=== PATIENT | female | born 1945 | race Caucasian/White ===

== ENCOUNTER → 2016-06-09 | Outpatient (CLI) | payer OTHER ==
[~2016-06-09] MED LIST: ALBUAER19 INH; AMLO-110 PO; ANT25 PO; CARV6.252 PO; CMD5 PO; CRG3125 PO; GADOXETATE DISODIUM IV PRN; LISI-792 PO; LNX125 PO; LRS20 PO; MECL25TA2 PO; OMEP20CA9 PO; TRAZ1TAB9 PO; VNTHFA/IN INH; WARF5TAB7 PO
--- NOTE | 2016-06-09 09:40 | DIAGNOSTIC IMAGING REPORT ---
MRI OF THE ABDOMEN COMBO CLINICAL HISTORY: Liver lesion. COMPARISON STUDY: 12/17/2015. TECHNIQUE: MRI of the abdomen is performed transverse T1 and T2-weighted sequences in the axial and coronal planes. Contrast enhanced sequences were acquired following the IV administration of U best. FINDINGS: Lower chest: No pleural effusion is identified. The heart is normal in size. Liver: The liver is normal in size, contour, and signal intensity. No intrahepatic biliary ductal dilatation is seen. The hepatic veins and portal veins are patent. 4 mm cyst anterior left hepatic lobe unchanged compared to prior studies Gallbladder: Unremarkable. Spleen: Normal in size and signal intensity. Pancreas: Unremarkable. Adrenal glands: Unremarkable. Kidneys: The kidneys are normal in size and without hydronephrosis. The kidneys enhance and excrete symmetrically. Bowel: Visualized portions of the small bowel and colon show no evidence of obstruction. Peritoneum: There is no abdominal ascites. Lymphadenopathy: None. Skeletal structures: Visualized skeletal structures times are normal marrow signal intensity. IMPRESSION: Normal MRI of the abdomen. Very small hepatic cyst. No significant abnormalities appreciated. The liver specifically is unremarkable Electronically signed by: Volodymyr Taylor M.D. 06/09/2016 9:39 AM Dictated Date/Time: 06/09/2016 9:33 AM
== END | disposition home or self-care (01) ==
LOC: C.MRI 07:21
PROVIDERS: ATTEND Internal Medicine Hematology & Oncology
DX: C69.92 Malignant neoplasm of unspecified site of left eye (principal); K76.9 Liver disease, unspecified

== ENCOUNTER 2016-06-19 17:50 | Inpatient (IN) | payer OTHER ==
[~2016-06-19] VITALS: Ht 165.1 cm; Wt 114.8 kg
[~2016-06-19 17:50] MED LIST changes: -AMLO-110 PO; -ANT25 PO; -CARV6.252 PO; -CRG3125 PO; -GADOXETATE DISODIUM IV PRN; -VNTHFA/IN INH
[2016-06-19] MEDS ORDERED: LABETALOL HCL IV 5 MG/ML 20ML IV STA ×2 (18:03→18:47)
--- NOTE | 2016-06-19 18:14 | EMERGENCY ROOM VISIT NOTE ---
History Report prepared by Abdulaziz: Hollie Gonzalez Under the Supervision of: Dr. Ambrose Nunez M.D. First contact with patient: 17:53 Chief Complaint: CHEST PAIN Stated Complaint: CHEST PAIN- CARDIAC HX, NOT FEELING RIGHT Nursing Triage Summary: Triage note: pt reports "i had chest pain off and on since 1719." pt reports "i had a small attack maybe a year ago." History of Present Illness The patient is a 70 year old female who presents to the Emergency Room with complaints of intermittent chest pain for the past 40 minutes. She describes her pain as sharp and states that it is located under her left breast. She is not currently having any chest pain at this time and states that she "just feels off." She feels lightheaded like she is going to pass out. Standing exacerbates this, while resting helps to alleviate it. She denies any LOC. The patient also reports feeling slightly short of breath when experiencing her chest pain. She denies nausea, vomiting, headache, melena, hematochezia, and abdominal pain. The patient has a history of an OH, and does not have any cardiac stents. 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 She has a history of A-fib and is on Coumadin. She states that her INR has been WNL. Source of History: patient Onset: 40 minutes TUBE FITTER Position: chest (left) Quality: sharp Timing: intermittent Modifying Factors (Worsening): exertion, other (standing) Modifying Factors (Relieving): rest Associated Symptoms: + SOB, No abdominal pain, No headache, No hematochezia , No melena, No nausea, No vomiting Note: Pt feels lightheaded. Review of Systems See HPI for pertinent positives & negatives. A total of 10 systems reviewed and were otherwise negative. Past Medical & Surgical Medical Problems: (1) ASTHMA, UNSPECIFIED (2) Chest pain (3) DIVERTICULOSIS COLON (W/O MENT OF HEMORRHAGE) (4) HYPERTENSION NOS (5) OTH PULMON EMBOLISM/INFARCT (6) PURE HYPERCHOLESTEROLEM Family History FHx: cancer Social History Smoking Status: Never Smoker Alcohol Use: none Drug Use: none Marital Status: Housing Status: lives with significant other Current/Historical Medications Scheduled Amlodipine (Norvasc), 2.5 MG PO DAILY Carvedilol (Coreg), 6.25 MG PO BIDM Digoxin (Digoxin), 0.125 MG PO DAILY Lisinopril (Zestril), 20 MG PO DAILY Omeprazole (Prilosec), 20 MG PO DAILY Trazodone Hcl (Desyrel), 100 MG PO HS Warfarin Sod (Jantoven), 2.5 MG PO 5XWK Warfarin Sod (Coumadin), 5 MG PO TW Scheduled PRN Albuterol Hfa (Ventolin Hfa), 2 PUFFS INH Q4H PRN for ALLERGIC REACTION Baclofen (Baclofen), 20 MG PO TID PRN for Muscle Spasms Meclizine HCl (Meclizine HCl), 25 MG PO TID PRN for Dizziness or Vertigo Allergies Coded Allergies: Aspirin (Verified Allergy, Unknown, ., 06/19/16) Penicillins (Verified Adverse Reaction, Mild, N/V, 06/19/16) Salicylates (Verified Adverse Reaction, Mild, NAUSEA, VOMITING, 06/19/16) Statins (Verified Adverse Reaction, Mild, MUSCLE PAIN, 06/19/16) Fluorescein (Verified Adverse Reaction, Unknown, DRUGS, 06/19/16) Physical Exam Vital Signs Date Time Temp Pulse Resp B/P Pulse Ox O2 Delivery O2 Flow Rate FiO2 06/19/16 20:00 72 18 144/86 Room Air 06/19/16 18:51 84 16 173/95 98 Room Air 06/19/16 18:32 71 18 186/115 96 Room Air 06/19/16 18:22 85 16 176/142 96 Room Air 06/19/16 18:16 91 06/19/16 17:54 36.7 99 20 211/174 97 Room Air Physical Exam GENERAL: Patient is anxious appearing and in minimal distress. HEENT: No acute trauma, normocephalic atraumatic, mucous membranes moist, no nasal congestion, no scleral icterus. NECK: No stridor, no adenopathy, no meningismus, trachea is midline. LUNGS: No dyspnea. Clear to auscultation and equal bilaterally. No wheeze, no rhonchi. HEART: Tachycardic rate and irregular rhythm. No murmurs, rubs, gallops appreciated. ABDOMEN: Soft, nontender, bowel sounds positive, no masses appreciated, no peritonitis. BACK: No midline tenderness, no CVA tenderness EXTREMITIES: Normal motion all extremities, no cyanosis, no edema. NEUROLOGIC: Alert and oriented, no acute motor or sensory deficits, no focal weakness, cranial nerves grossly intact. SKIN: No rash, no jaundice, no diaphoresis. Medical Decision & Procedures ER Provider Diagnostic Interpretation: Radiology results and stated below per my review and radiologist interpretation: CHEST ONE VIEW PORTABLE CLINICAL HISTORY: Chest pain. Cardiac history. COMPARISON STUDY: Chest radiograph and chest CT February 06, 2012. FINDINGS: Lung volumes are normal. There is no pneumothorax or pleural effusion. There is no evidence of pulmonary edema. Moderate enlargement of the cardiac silhouette is increased since prior exam. In part, this could be due to a pericardial effusion. There is no evidence of pulmonary edema. IMPRESSION: 1. Moderate enlargement of the cardiac silhouette, increased since prior exam. In part, this could be due to a pericardial effusion. 2. No evidence of pulmonary edema. Electronically signed by: Sunil Piper M.D. 06/19/2016 6:23 PM Dictated Date/Time: 06/19/2016 6:21 PM Laboratory Results 06/19/16 18:05 Red Blood Count 4.84, Mean Corpuscular Volume 85.1, Mean Corpuscular Hemoglobin 28.9, Mean Corpuscular Hemoglobin Concent 34.0, Mean Platelet Volume 10.7, Neutrophils (%) (Auto) 50.3, Lymphocytes (%) (Auto) 41.7, Monocytes (%) (Auto) 6.6, Eosinophils (%) (Auto) 1.0, Basophils (%) (Auto) 0.3, Neutrophils # (Auto) 3.40, Lymphocytes # (Auto) 2.83, Monocytes # (Auto) 0.45, Eosinophils # (Auto) 0.07, Basophils # (Auto) 0.02 06/19/16 18:05 Test 06/19/16 18:05 White Blood Count 6.78 K/uL (4.8-10.8) Red Blood Count 4.84 M/uL (4.2-5.4) Hemoglobin 14.0 g/dL (12.0-16.0) Hematocrit 41.2 % (37-47) Mean Corpuscular Volume 85.1 fL (80-100) Mean Corpuscular Hemoglobin 28.9 pg (25-34) Mean Corpuscular Hemoglobin Concent 34.0 g/dl (32-36) Platelet Count 176 K/uL (130-400) Mean Platelet Volume 10.7 fL (7.4-10.4) Neutrophils (%) (Auto) 50.3 % Lymphocytes (%) (Auto) 41.7 % Monocytes (%) (Auto) 6.6 % Eosinophils (%) (Auto) 1.0 % Basophils (%) (Auto) 0.3 % Neutrophils # (Auto) 3.40 K/uL (1.4-6.5) Lymphocytes # (Auto) 2.83 K/uL (1.2-3.4) Monocytes # (Auto) 0.45 K/uL (0.11-0.59) Eosinophils # (Auto) 0.07 K/uL (0-0.5) Basophils # (Auto) 0.02 K/uL (0-0.2) RDW Standard Deviation 40.6 fL (36.4-46.3) RDW Coefficient of Variation 13.1 % (11.5-14.5) Immature Granulocyte % (Auto) 0.1 % Immature Granulocyte # (Auto) 0.01 K/uL (0.00-0.02) Prothrombin Time 32.5 SECONDS (9.0-12.0) Prothromb Time International Ratio 2.9 (0.9-1.1) Activated Partial Thromboplast Time 37.8 SECONDS (21.0-31.0) Partial Thromboplastin Ratio 1.5 Anion Gap 8.0 mmol/L (3-11) Est Creatinine Clear Calc Drug Dose 71.3 ml/min Estimated GFR () 72.2 Estimated GFR (Non- 62.3 BUN/Creatinine Ratio 11.8 (10-20) Calcium Level 9.3 mg/dl (8.5-10.1) Magnesium Level 2.0 mg/dl (1.8-2.4) Total Creatine Kinase 77 U/L (26-192) Creatine Kinase MB 1.0 ng/ml (0.5-3.6) Creatine Kinase MB Ratio 1.3 (0-3.0) Troponin I < 0.015 ng/ml (0-0.045) Digoxin Level 0.9 ng/ml (0.8-2.0) Laboratory results as reviewed by me. Medications Administered Medications (Trade) Dose Ordered Sig/Paddy Route Start Time Stop Time Status Last Admin Dose Admin Labetalol HCl (Normodyne IV) 10 mg NOW STAT IV 06/19/16 18:03 06/19/16 18:04 DC 06/19/16 18:26 10 MG Labetalol HCl (Normodyne IV) 10 mg NOW STAT IV 06/19/16 18:47 06/19/16 18:48 DC 06/19/16 19:12 10 MG ECG Indication: chest pain Rate (beats per minute): 96 Rhythm: atrial fibrillation Findings: PVC, T-wave inversion (in lead 1) Comparison ECG Date: 01/15/2015 Change: T-wave inversions are new. ED Course 175: The patient was evaluated in room A3. A complete history and physical exam was performed. 1802: Labetalol HCl 10 mg IV 1846: Labetalol HCl 10 mg IV 1907: I reassessed the patient at this time. She is feeling better with her blood pressure improving. I discussed the results and treatment plan with the patient. I answered all pertaining questions that she had. She expressed understanding and verbalized agreement. 1920: I spoke with Dr. Huber. We discussed the patient's results and treatment plan. [facility]. Medical Decision Differential: Cardiac Ischemia (STEMI, NSTEMI, Unstable Angina, etc), Aortic Dissection, Arrhythmia, Pulmonary Embolism, Pneumonia, Pneumothorax, MSK, Infectious, Pericarditis/Myocarditis, Esophageal Rupture, Gastrointestinal, amongst other pathologies entertained. 70 yr old female arrives with complaint of left chest pain. Resolved prior to arrival. Now significantly hypertensive with vague lightheadedness. No neuro deficits and patient feeling vastly improved with BP lowered with IV meds. Initial trop negative and EKG unremarkable. CXR unremarkable. Other labs look OK currently. Will need to come in for cardiac rule out given her history she is too high risk to discharge from ED. Consults Time Called: 1901 Consulting Physician: Dr. Huber Returned Call: [address] Huber. We discussed the patient's results and treatment plan. The [facility]. Impression Primary Impression: Left sided chest pain Additional Impression: Hypertensive urgency Scribe Attestation The scribe's documentation has been prepared under my direction and personally reviewed by me in its entirety. I confirm that the note above accurately reflects all work, treatment, procedures, and medical decision making performed by me. Departure Information Dispostion Being Evaluated By Hospitalist Referrals Gopal Rodriguez M.D.(HUGH) (PCP) Patient Instructions My [facility] Problem Qualifiers
[2016-06-19 18:25] LABS: BASO % 0.3 %; BASO ABS # 0.02 K/uL (0-0.2); COMPLETE YES; HEMATOCRIT 41.2 % (37-47); IG% 0.1 %; LYMPH % 41.7 %; LYMPH ABS # 2.83 K/uL (1.2-3.4); MEAN CELL VOLUME 85.1 fL (80-100); MEAN CORPUSCULAR HEMOGLOBIN 28.9 pg (25-34); MEAN PLATELET VOLUME 10.7 fL (7.4-10.4); MONO % 6.6 %; NEUT % 50.3 %; PLATELET COUNT 176 K/uL (130-400); RED BLOOD COUNT 4.84 M/uL (4.2-5.4); WHITE BLOOD COUNT 6.78 K/uL (4.8-10.8)
--- NOTE | 2016-06-19 18:25 | DIAGNOSTIC IMAGING REPORT ---
CHEST ONE VIEW PORTABLE CLINICAL HISTORY: Chest pain. Cardiac history. COMPARISON STUDY: Chest radiograph and chest CT February 06, 2012. FINDINGS: Lung volumes are normal. There is no pneumothorax or pleural effusion. There is no evidence of pulmonary edema. Moderate enlargement of the cardiac silhouette is increased since prior exam. In part, this could be due to a pericardial effusion. There is no evidence of pulmonary edema. IMPRESSION: 1. Moderate enlargement of the cardiac silhouette, increased since prior exam. In part, this could be due to a pericardial effusion. 2. No evidence of pulmonary edema. Electronically signed by: Sunil Piper M.D. 06/19/2016 6:23 PM Dictated Date/Time: 06/19/2016 6:21 PM
[2016-06-19 18:33] LABS: INR 2.9 (0.9-1.1); PARTIAL THROMBOPLASTIN RATIO 1.5; PROTHROMBIN TIME (PATIENT) 32.5 SECONDS (9.0-12.0)
[2016-06-19 18:44] LABS: BLOOD UREA NITROGEN 11 mg/dl (7-18); BUN/CREATININE RATIO 11.8 (10-20); CALCIUM 9.3 mg/dl (8.5-10.1); CARBON DIOXIDE 29 mmol/L (21-32); CHLORIDE 104 mmol/L (98-107); CREATININE 0.93 mg/dl (0.60-1.20); GLUCOSE 87 mg/dl (70-99); POTASSIUM 3.8 mmol/L (3.5-5.1); SODIUM 141 mmol/L (136-145)
[2016-06-19] MEDS ORDERED: ANT25 PO (18:45)
[2016-06-19] MEDS ORDERED: VNTHFA/IN INH (18:45)
[2016-06-19] MEDS ORDERED: AMLO-110 PO (18:45)
[2016-06-19] MEDS ORDERED: CARV6.252 PO (18:45)
[2016-06-19 18:50] LABS: CKMB/CK RATIO 1.3 (0-3.0)
--- NOTE | 2016-06-19 19:51 | History and Physical ---
History & Physical Date & Time of Service: Jun 19, 2016 at 19:47 . Chief Complaint: chest pressure . Primary Care Physician: Gopal Rodriguez M.D.(AMANDA) . History of Present Illness Source: patient, family, clinic records, hospital records 70 YO female followed by Dr. Rodriguez for Family Medicine and Dr. Calderon for Cardiology. History of ischemic heart disease- apical wall motion abnormality per echo, but no clinical history of LA. History of pericardial effusion- incidentally noted on MRI, small by echo in 2016. Other medical problems include chronic AF managed with rate control and warfarin , hypertension, ocular melanoma. Developed chest pain this evening. She had been shopping with her and they were returning home in their vehicle when she developed left inframammary chest pressure. Chest pain was not pleuritic in nature and did not radiate. It was associated with SOB, but no diaphoresis, nausea, vomiting. Came to ED for evaluation. BP upon presentation 211/174. Received IV labetalol with improvement of BP and resolution of chest pain. Pain-free at time of my assessment. . 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, treated with radiation implant [facility] Status: Chronic (10) History of pulmonary embolism Status: Chronic (11) Hypertension Status: Chronic (12) Migraine headache Status: Chronic (13) Osteoarthritis Status: Chronic (14) Pericardial effusion Permanent Comment: small pericardial effusion per echo 2016 Status: Chronic (15) Restless leg syndrome Status: Chronic (16) Sleep apnea, obstructive Permanent Comment: intolerant of CPAP Status: Chronic (17) Statin intolerance Status: Chronic Surgical Problems: (1) Status post appendectomy Status: Chronic (2) Status post cholecystectomy Status: Chronic (3) Status post hysterectomy Status: Chronic . Family History FATHER Cancer MOTHER Uterine cancer BROTHER Lung cancer SON Hypertension Stroke Coronary artery disease SON Coronary artery disease Social History Smoking Status: Never Smoker Alcohol Use: none Drug Use: none Marital Status: Housing status: lives with family Immunizations History of Influenza Vaccine: Yes History of Tetanus Vaccine?: No History of Pneumococcal: Yes Pneumococcal Date: Feb 08, 2012 History of Hepatitis B Vaccine: No Multi-Drug Resistant Organisms History of MDRO: No Allergies Coded Allergies: Aspirin (Verified Allergy, Unknown, ., 06/19/16) Penicillins (Verified Adverse Reaction, Mild, N/V, 06/19/16) Salicylates (Verified Adverse Reaction, Mild, NAUSEA, VOMITING, 06/19/16) Statins (Verified Adverse Reaction, Mild, MUSCLE PAIN, 06/19/16) Fluorescein (Verified Adverse Reaction, Unknown, DRUGS, 06/19/16) Home Medications Scheduled Amlodipine (Norvasc), 2.5 MG PO DAILY Carvedilol (Coreg), 6.25 MG PO BIDM Digoxin (Digoxin), 0.125 MG PO DAILY Lisinopril (Zestril), 20 MG PO DAILY Omeprazole (Prilosec), 20 MG PO DAILY Trazodone Hcl (Desyrel), 100 MG PO HS Warfarin Sod (Jantoven), 2.5 MG PO 5XWK Warfarin Sod (Coumadin), 5 MG PO TW Scheduled PRN Albuterol Hfa (Ventolin Hfa), 2 PUFFS INH Q4H PRN for ALLERGIC REACTION Baclofen (Baclofen), 20 MG PO TID PRN for Muscle Spasms Meclizine HCl (Meclizine HCl), 25 MG PO TID PRN for Dizziness or Vertigo Review of Systems Constitutional: + weight loss (intentional), No fever Eyes: + worsening of vision (vision loss left eye due to melanoma + radiation treatment) ENT: No nasal symptoms, No sore throat Respiratory: No cough, No wheezing Cardiovascular: + chest pain (as noted in HPI), + palpitations (occasional), No edema Abdomen: + GI bleeding (intermittent rectal bleeding, evaluated by colonoscopy , attributed to hemorrhoids), No diarrhea, No nausea, No pain, No vomiting Musculoskeletal: + joint pain Genitourinary - Female: No dysuria, No hematuria Endocrine: No excessive thirst, No excessive urination Hematologic / Lymphatic: + abnormal bleeding/bruising Integumentary: No new/changing skin lesions, No rash Physical Exam Vital Signs Date Time Temp Pulse Resp B/P Pulse Ox O2 Delivery O2 Flow Rate FiO2 06/19/16 18:51 84 16 173/95 98 Room Air 06/19/16 18:32 71 18 186/115 96 Room Air 06/19/16 18:22 85 16 176/142 96 Room Air 06/19/16 18:16 91 06/19/16 17:54 36.7 99 20 211/174 97 Room Air General Appearance: WD/WN, no apparent distress Head: normocephalic, atraumatic Eyes: normal inspection, PERRL, EOMI, sclerae normal ENT: normal ENT inspection, pharynx normal Neck: supple, no adenopathy, thyroid normal, trachea midline Respiratory/Chest: lungs clear, no respiratory distress, no accessory muscle use Cardiovascular: no JVD, no murmur, normal peripheral pulses, + irregularly irregular, + pertinent finding (trace pretibial edema) Abdomen/GI: normal bowel sounds, non tender, soft, no organomegaly, no pulsatile mass Extremities/Musculoskelatal: normal inspection, no calf tenderness, no pedal edema Neurologic/Psych: 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 nml as tested (PERRL, EOMI), no motor/sensory deficits (motor 5/5 bilat), alert, oriented x 3 Skin: normal color, warm/dry, no rash Lymphatic: no adenopathy Diagnostics Laboratory Results Results Past 24 Hours Test 06/19/16 18:05 Range/Units White Blood Count 6.78 4.8-10.8 K/uL Red Blood Count 4.84 4.2-5.4 M/uL Hemoglobin 14.0 12.0-16.0 g/dL Hematocrit 41.2 37-47 % Mean Corpuscular Volume 85.1 80-100 fL Mean Corpuscular Hemoglobin 28.9 25-34 pg Mean Corpuscular Hemoglobin Concent 34.0 32-36 g/dl Platelet Count 176 130-400 K/uL Mean Platelet Volume 10.7 7.4-10.4 fL Neutrophils (%) (Auto) 50.3 % Lymphocytes (%) (Auto) 41.7 % Monocytes (%) (Auto) 6.6 % Eosinophils (%) (Auto) 1.0 % Basophils (%) (Auto) 0.3 % Neutrophils # (Auto) 3.40 1.4-6.5 K/uL Lymphocytes # (Auto) 2.83 1.2-3.4 K/uL Monocytes # (Auto) 0.45 0.11-0.59 K/uL Eosinophils # (Auto) 0.07 0-0.5 K/uL Basophils # (Auto) 0.02 0-0.2 K/uL RDW Standard Deviation 40.6 36.4-46.3 fL RDW Coefficient of Variation 13.1 11.5-14.5 % Immature Granulocyte % (Auto) 0.1 % Immature Granulocyte # (Auto) 0.01 0.00-0.02 K/uL Prothrombin Time 32.5 9.0-12.0 SECONDS Prothromb Time International Ratio 2.9 0.9-1.1 Activated Partial Thromboplast Time 37.8 21.0-31.0 SECONDS Partial Thromboplastin Ratio 1.5 Sodium Level 141 136-145 mmol/L Potassium Level 3.8 3.5-5.1 mmol/L Chloride Level 104 98-107 mmol/L Carbon Dioxide Level 29 21-32 mmol/L Anion Gap 8.0 3-11 mmol/L Blood Urea Nitrogen 11 7-18 mg/dl Creatinine 0.93 0.60-1.20 mg/dl Est Creatinine Clear Calc Drug Dose 71.3 ml/min Estimated GFR () 72.2 Estimated GFR (Non- 62.3 BUN/Creatinine Ratio 11.8 10-20 Random Glucose 87 70-99 mg/dl Calcium Level 9.3 8.5-10.1 mg/dl Magnesium Level 2.0 1.8-2.4 mg/dl Total Creatine Kinase 77 26-192 U/L Creatine Kinase MB 1.0 0.5-3.6 ng/ml Creatine Kinase MB Ratio 1.3 0-3.0 Troponin I < 0.015 0-0.045 ng/ml Digoxin Level 0.9 0.8-2.0 ng/ml Diagnostic Radiology CHEST ONE VIEW PORTABLE CLINICAL HISTORY: Chest pain. Cardiac history. COMPARISON STUDY: Chest radiograph and chest CT February 06, 2012. FINDINGS: Lung volumes are normal. There is no pneumothorax or pleural effusion. There is no evidence of pulmonary edema. Moderate enlargement of the cardiac silhouette is increased since prior exam. In part, this could be due to a pericardial effusion. There is no evidence of pulmonary edema. IMPRESSION: 1. Moderate enlargement of the cardiac silhouette, increased since prior exam. In part, this could be due to a pericardial effusion. 2. No evidence of pulmonary edema. Electronically signed by: Sunil Piper M.D. 06/19/2016 6:23 PM . EKG EKG performed at 17:56 reviewed and demonstrated AF at 96 / minute, occasional PVC vs aberrant PAC, poor R-wave progression, biphasic T-waves I, aVL.. . Impression Assessment and Plan CHEST PAIN / CAD History of wall motion abnormality on echo, but no clinical history of LA. CP this evening at rest. History of pulmonary embolism, but PE very unlikely with INR of 2.9 on warfarin. Doubt aortic dissection - equal pulses, pain-free after treatment of hypertension, normal mediastinal shadow (although dissection must be considered if pain recurs and there is not another etiology). EKG as noted. Serum troponin < 0.015. Check serial cardiac markers and EKG. Check lipid profile. Check echo to assess for new wall motion abnormalities. Continue aspirin, carvedilol, amlodipine, lisinopril. Intolerant of statins- consider another trial if acute coronary syndrome suspected. Consult Cardiology. PERICARDIAL EFFUSION History of small pericardial effusion per echo 2016. Today's chest x-ray shows enlarged cardiac silhouette consistent with pericardial effusion. Hemodynamically stable, tamponade unlikely. Etiology of pericardial effusion uncertain- consider autoimmune disease, malignancy (history of melanoma). Check f/u echo. Consult Cardiology. NPO in a.m. & hold warfarin in case pericardiocentesis warranted. CHRONIC ATRIAL FIBRILLATION Continue rate control with carvedilol and digoxin. Continue anticoagulation with warfarin (but hold for possible pericardiocentesis ). HYPERTENSION / HYPERTENSIVE URGENCY History of hypertension. BP upon presentation to ED was 211/74. Received IV labetalol with improvement. Continue carvedilol, amlodipine, lisinopril. Increase amlodipine to 5 mg daily. Consider increasing carvedilol if pulse rate OK. GERD Continue PPI. DYSLIPIDEMIA Check lipid profile. Intolerant of statins- consider another trial if acute coronary syndrome suspected. HISTORY OF OCULAR MELANOMA Follow-up with Hematology / Oncology and Ophthalmology. VTE PROPHYLAXIS High risk- history of DVT and PE. Currently anticoagulated on warfarin with INR of 2.9. Warfarin will be held as noted above. Ambulate. Add SCD's if INR falls below 2. RESUSCITATION STATUS Full resuscitation status implied by conversation in ED, not addressed in detail because of patient's anxiety and labile hypertension. Should be readdressed when appropriate. DISPOSITION Admit to Telemetry Unit. Expected discharge to home. Family Medicine follow-up with Dr. Rodriguez. Cardiology follow-up with Dr. Calderon. . VTE Prophylaxis Given or contraindicated: Warfarin (Coumadin) Additional Copies To Ken Calderon D.O.; Gopal Rodriguez M.D.(AMANDA)
[2016-06-19] MEDS ORDERED: ACETAMINOPHEN 325 MG TAB PO PRN (20:00)
[2016-06-19] MEDS ORDERED: LABETALOL HCL IV 5 MG/ML 20ML IV PRN (21:15)
[2016-06-19 21:52] VITALS: BP 184/128; PULSE 68; TEMP 36.5; O2SAT 97
[2016-06-19] MEDS ORDERED: AMLODIPINE BESYLATE 5 MG TAB PO ONE ×2 (22:00→22:45)
[2016-06-19 22:04] VITALS: BP 184/128; PULSE 68; TEMP 36.5; O2SAT 97; Ht 165.1 cm; Wt 114.8 kg
[2016-06-19 22:30] VITALS: BP 144/79; PULSE 78
[2016-06-19] MEDS ORDERED: TRAZODONE HCL 100 MG TAB PO ONE (23:45)
[2016-06-19 23:52] VITALS: BP 151/88; PULSE 66; TEMP 37; O2SAT 97
[2016-06-20] VITALS (7 sets, daily range): BP systolic 126–159; BP diastolic 70–87; PULSE 59–77; TEMP 36.2–36.6; O2SAT 95–97
[2016-06-20 06:56] LABS: HEMATOCRIT 37.1 % (37-47); MEAN CELL VOLUME 85.5 fL (80-100); MEAN CORPUSCULAR HEMOGLOBIN 28.3 pg (25-34); MEAN CORPUSCULAR HGB CONC 33.2 g/dl (32-36); MEAN PLATELET VOLUME 10.5 fL (7.4-10.4); PLATELET COUNT 143 K/uL (130-400); RED BLOOD COUNT 4.34 M/uL (4.2-5.4); WHITE BLOOD COUNT 4.66 K/uL (4.8-10.8)
[2016-06-20] MEDS ORDERED: PERFLUTREN LIPID MICROSPHERE (DEFINITY) IV ONE (07:05)
[2016-06-20 07:19] LABS: INR 3.1 (0.9-1.1)
[2016-06-20 07:28] LABS: BUN/CREATININE RATIO 12.6 (10-20); CALCIUM 8.5 mg/dl (8.5-10.1); CREATININE 0.86 mg/dl (0.60-1.20); POTASSIUM 3.4 mmol/L (3.5-5.1)
--- NOTE | 2016-06-20 07:39 | Clinical Documentation Query ---
Dr. [facility] : CLINICAL DOCUMENTATION QUERY Patient is a 70 year old female presenting with intermittent chest pain associated with shortness of breath. BP 211/174 on arrival to ED. She was treated with IV Labetalol and is being maintained on Carvedilol, Amlodipine, and Lisinopril. Documentation has included hypertensive urgency. As appropriate, consider a more broad descriptor as suggested below as this imparts a higher level of severity of illness, risk of mortality, and directly impacts DRG assignment. Thank you. In your clinical opinion is this patient being managed for: ( ) Hypertensive crisis ( ) Other explanation of clinical findings (Please Explain) ( ) Unable to determine (Please Define) ( ) Need to Discuss ( ) Not Agree XXX NOT MY PATIENT The medical record reflects the following clinical findings, treatment, and risk factors. Clinical Indicators: As above Treatment:She was treated with IV Labetalol and is being maintained on Carvedilol, Amlodipine, and Lisinopril, monitored on telemetry, echocardiogram, serial EKG's, cardiology consultation. Risk Factors: Hypertension, chest pain Please clarify and document your clinical opinion in the progress notes and discharge summary. Terms such as "probable", "suspected", "likely", "questionable", "possible", or "still to be ruled out" are acceptable. IF IN AGREEMENT, YOU MUST DOCUMENT ABOVE DIAGNOSTIC STATEMENT IN DAILY PROGRESS NOTES AND DISCHARGE SUMMARY. This document is not part of the patient's record. Thank You, Kiran Gilbert, RN [phone]
[2016-06-20] MEDS ORDERED: CARVEDILOL 6.25 MG TAB PO SCH (08:00)
--- NOTE | 2016-06-20 08:41 | ECHOCARDIOGRAM REPORT ---
*NOTICE TO RECEIVING DEMOCRAT AGENCY This information is strictly Confidential and protected under [place] law. [place] law prohibits you from making any further disclosure of this information unless further disclosure is expressly permitted by the written consent of the person to whom it pertains or is authorized by law. A general authorization for the release of medical or other information is not sufficient for this purpose. Hospital accepts no responsibility if the information is made available to any other person, INCLUDING THE PATIENT. Interpretation Summary * Name: ROMAIN GONZALEZ Study Date: 06/20/2016 09:29 AM BP: 159/87 mmHg * Patient Location: [facility]\S\N280\S\1 HR: 64 * : 1945 (M/d/yyyy) Gender: Female Height: 65 in * Age: 70 yrs Ethnicity: [place] Weight: 253 lb * Ordering Physician: Stanislav Huber * Referring Physician: Self, Referred * Performed By: Priya Early RDCS * * Reason For Study: CHEST PAIN * BSA: 2.2 m2 * -- Conclusions -- * The left ventricle is normal in size. * There is mild concentric left ventricular hypertrophy. * There is borderline global hypokinesis of the left ventricle. * There is borderline apical wall hypokinesis. * Ejection Fraction = 50-55%. * Aortic valve sclerosis mild, without significant aortic valvular stenosis. * Trace aortic regurgitation. * A small loculated lateral pericardial effusion of no hemodynamic significance is present. Procedure Details * A complete two-dimensional transthoracic echocardiogram was performed (2D, M-mode, Doppler and color flow Doppler). * A contrast injection of Definity was performed to improve assessment of LV function. * Contrast was injected into an intravenous site in the right arm. * One vial of Definity ultrasound contrast was diluted in normal saline to a total volume of 10 ml. A total of '2' ml of solution was administered during imaging. * Lot # [id number] of Definity utilized for procedure. * Expiration date JUN 24. * The attending nurse who injected the contrast agent was GUERO POPE RN. Left Ventricle * The left ventricle is normal in size. * There is mild concentric left ventricular hypertrophy. * Ejection Fraction = 50-55%. * There is borderline global hypokinesis of the left ventricle. * There is borderline apical wall hypokinesis. Right Ventricle * The right ventricle is normal in size and function. Atria * The left atrial size is normal. * The right atrium is borderline dilated. * No ASD detected; PFO is not assessed. Mitral Valve * The mitral valve leaflets are mildly thickened. * There is no mitral valve stenosis. * There is trace mitral regurgitation. Tricuspid Valve * The tricuspid valve is normal. * There is no tricuspid stenosis. * There is trace tricuspid regurgitation. * Doppler findings do not suggest pulmonary hypertension. Aortic Valve * The aortic valve is trileaflet. * Aortic valve sclerosis mild, without significant aortic valvular stenosis. * Trace aortic regurgitation. Pulmonic Valve * The pulmonic valve is not well visualized. Great Vessels * The aortic root is normal size. Pericardium/Pleural * A small loculated lateral pericardial effusion of no hemodynamic significance is present. Great Vessels * Normal inferior vena cava diameter and respiratory variation suggests normal central venous pressure. Left Ventricular Diastolic Function * Diastolic dysfunction, Grade II (pseudonormalization pattern). MMode 2D Measurements and Calculations IVSd 1.3 cm IVSs 1.7 cm LVIDd 5.5 cm LVIDs 3.9 cm LVPWd 1.2 cm LVPWs 1.7 cm IVS/LVPW 1.1 FS 28.8 % EDV(Teich) 145.3 ml ESV(Teich) 65.5 ml EF(Teich) 54.9 % EDV(cubed) 163.3 ml ESV(cubed) 58.9 ml EF(cubed) 64.0 % % IVS thick 33.3 % % LVPW thick 45.1 % LV mass(C)d 271.8 grams LV mass(C)dI 124.3 grams/m\S\2 LV mass(C)s 267.7 grams LV mass(C)sI 122.5 grams/m\S\2 SV(Teich) 79.8 ml SI(Teich) 36.5 ml/m\S\2 SV(cubed) 104.5 ml SI(cubed) 47.8 ml/m\S\2 LA dimension 4.5 cm LVAd ap4 33.5 cm\S\2 LVLd ap4 8.3 cm EDV(MOD-sp4) 114.0 ml LVAs ap4 22.9 cm\S\2 LVLs ap4 7.6 cm ESV(MOD-sp4) 59.5 ml EF(MOD-sp4) 47.8 % LVAd ap2 36.7 cm\S\2 LVLd ap2 8.9 cm EDV(MOD-sp2) 125.0 ml LVAs ap2 24.8 cm\S\2 LVLs ap2 7.9 cm ESV(MOD-sp2) 65.2 ml EF(MOD-sp2) 47.8 % SV(MOD-sp4) 54.5 ml SI(MOD-sp4) 24.9 ml/m\S\2 SV(MOD-sp2) 59.8 ml SI(MOD-sp2) 27.4 ml/m\S\2 Doppler Measurements and Calculations MV E max lesley 124.7 cm/sec MV dec time 0.20 sec Ao V2 max 142.3 cm/sec Ao max PG 8.1 mmHg Ao max PG (full) 5.0 mmHg AI max lesley 428.6 cm/sec AI max PG 73.9 mmHg AI dec slope 134.8 cm/sec\S\2 AI P1/2t 931.0 msec LV V1 max PG 3.1 mmHg LV V1 max 88.3 cm/sec
[2016-06-20] MEDS ORDERED: DIGOXIN 0.125 MG TAB PO SCH (09:00)
[2016-06-20] MEDS: PANTOprazole SOD 40 MG TAB PO SCH (09:56)
[2016-06-20] MEDS: AMLODIPINE BESYLATE 5 MG TAB PO SCH (09:57)
[2016-06-20] MEDS: LISINOPRIL 20 MG TAB PO SCH (09:57)
[2016-06-20] MEDS ORDERED: CARVEDILOL 3.125 MG TAB PO ONE (10:15)
--- NOTE | 2016-06-20 11:00 | Cardiology Consultation ---
Cardiology Consultation Date of Service Jun 20, 2016. (Viri Moreno, RAND) Cardiology Consultation Cardiology Consultation: SUBJECTIVE: Nevaeh Pizarro is a 70 year old female who follows with Dr. Calderon for routine cardiac care. History includes pericardial effusion first noted on CT scan in 06/2015, with follow up echo demonstrating small pericardial effusion without tamponade and mildly reduced LV systolic function at 45% with new apical wall motion abnormality. She subsequently underwent a pharmacologic nuclear stress test which revealed an apical scar with no reversible ischemia. Continued medication therapy for presumed CAD was recommended at that time. Pericardial effusion noted to have fibrous strands , likely old/chronic and no further testing indicated at that time. She also has a history of chronic afib, rate controlled on beta shamar and digoxin therapy. She is appropriately anticoagulated with Coumadin. She states she was in usual state of health until yesterday when she returned home from shopping and sneezed, subsequently developing left sided sharp/ stabbing pain underneath left breast. She came to ER for evaluation. She states by the time she reached ER, left sided pain, was much improved, described as a mild "pinching" sensation. She then noted when she was checking in at the desk feeling near syncopal and needed to sit down quickly. No loss of consciousness. Symptoms resolved within 30 seconds of sitting. EKG obtained demonstrated atrial fib with rate of 90s. No abnormal ST/T wave changes. BP was significantly elevated and treated with IV labetalol. Cardiac enzymes unremarkable. AT time of consult, patient feeling ok. Symptoms resolved overnight. She notes moving herself in bed and developing mild "twinge" resolving in same area, resolving quickly. No pleuritic chest pain. During time of pain this AM, she was notified her HR was slower ranging 30-50 with several prolonged R-R episodes. No reports of recurrent near syncope or dizziness. Currently she is asymptomatic and denies complaints. She states she is "always dizzy" due to vertigo. She denies other near syncopal events. No exertional chest pain or worsening SOB doing daily activities. No sense of palpitations. No orthopnea, PND or edema. No fever, cough, chills. Review of Systems: See HPI for pertinent positives. All other 10 point review of Systems is as stated above or negative. PMH: CLASSICAL MIGRAINE WITHOU MENTION OF INTRACTABLE MIGRAINE Depression PLANTAR FIBROMATOSIS RESTLESS LEG SYNDROME GENERAL OSTEOARTHROSIS ESOPHAGEAL REFLUX Dyslipidemia, goal LDL below 130 HTN, goal below 140/90 Intermittent asthma with reliever use up to twice per week Other pulmonary embolism and infarction (HCC) MARIA M (obstructive sleep apnea) Atrial fibrillation (HCC) Statin intolerance Carotid stenosis, non-symptomatic Melanoma of eye (HCC) Pericardial effusion Presumed CAD Surgical History Procedure Laterality Date Comment MISCELLANEOUS ORDER Left 03/22/2015 implant plaque in Left eye, jenkins eye MISCELLANEOUS ORDER Left 03/26/2015 implant plaque removed in left eye, Jenkins eye REMOVAL OF APPENDIX age 23 Appendectomy, incidental, w/ cholecystectomy REMOVE GALLBLADDER age 23 Cholecystectomy THIGH OR KNEE SURGERY NEC 1998 rt knee surgery TOTAL HYSTERECTOMY age 44 Hysterectomy, Abdominal, With BSO Social history: . Lives at home with . No history of alcohol or tobacco abuse. Family History: Multiple family members with CAD, including sons. Review of patient's allergies indicates: -- Aspirin -- Fluorescein -- Anaphylaxis and Hives -- Enoxaparin Sodium -- Itching -- Penicillins -- Nausea/vomiting -- Salicylates -- Nausea/vomiting -- Statins -- Muscle pain Reported Home Medications Medications Dose Route/Sig Max Daily Dose Days Date Category Dose Instructions Coreg (Carvedilol) 6.25 Mg Tab 6.25 Mg PO BIDM 06/19/16 Reported Norvasc (Amlodipine Besylate) 5 Mg Tab 2.5 Mg PO DAILY 06/19/16 Reported Ventolin Hfa (Albuterol) 200 Puffs/19302 Mcg Aers 2 Puffs INH Q4H PRN 06/19/16 Reported Meclizine HCl 25 Mg Tab 25 Mg PO TID PRN 06/19/16 Reported Coumadin (Warfarin Sod) 5 Mg Tab 5 Mg PO TW 01/15/15 Reported THURSDAYS & SUNDAYS Jantoven (Warfarin Sodium) 5 Mg Tab 2.5 Mg PO 5XWK 01/15/15 Reported THURSDAY, THURSDAY, THURSDAY, THURSDAY, & THURSDAY Baclofen 20 Mg Tab 20 Mg PO TID PRN 01/15/15 Reported Digoxin 0.125 Mg Tab 0.125 Mg PO DAILY 01/15/15 Reported Desyrel (Trazodone Hcl) 100 Mg Tab 100 Mg PO HS 02/06/12 Reported FOR RESTLESS LEGS Zestril (Lisinopril) 20 Mg Tab 20 Mg PO DAILY 02/06/12 Reported Prilosec (Omeprazole) 20 Mg Cap 20 Mg PO DAILY 02/06/12 Reported TAKE THIS MEDICATION ONE HOUR PRIOR TO FIRST MEAL OF THE DAY. OBJECTIVE/PHYSICAL EXAMINATION: Last 8 Hrs Date Time Temp Pulse Resp B/P Pulse Ox O2 Delivery O2 Flow Rate FiO2 06/20/16 07:41 36.6 64 16 159/87 95 Room Air 06/20/16 04:48 36.5 60 20 134/70 95 Room Air 06/20/16 04:00 Room Air General: no acute distress and stated age Eyes: conjunctiva are pink and non-injected, sclera clear Neck: normal jugular venous pulse, no hepatojugular reflux Chest: normal shape and normal respiratory effort Lungs: clear to auscultation and percussion Cardiac Exam: - irregular rhythm, no murmurs Abdomen: abdomen soft, non-tender, no abnormal masses and no hepatosplenomegaly Musculoskeletal: no gait disturbance, no weakness Extremities: no edema and no cyanosis Neuro: grossly normal exam Psych: appropriate affect and insight. Data: EKG on admission dated 06/19/16: Atrial fibrillation with premature ventricular or aberrantly conducted complexes Possible Anterior infarct (cited on or before 15-JAN-2015) Abnormal ECG When compared with ECG of 15-JAN-2015 13:09, No significant change was found Chest xray reviewed: Moderate cardiac enlargement no infiltrates or pulm edema, pleural effusions Telemetry reviewed - Atrial fib with variable rates ranging 30-100 bpm. Occasional prolonged R-R. Patient asymptomatic. Echo reviewed: * The left ventricle is normal in size. * There is mild concentric left ventricular hypertrophy. * There is borderline global hypokinesis of the left ventricle. * There is borderline apical wall hypokinesis. * Ejection Fraction = 50-55%. * Aortic valve sclerosis mild, without significant aortic valvular stenosis. * Trace aortic regurgitation. * A small loculated lateral pericardial effusion of no hemodynamic significance is present. Prior studies: Echo reviewed from 12/2015 at [facility]: Interpretation Summary The examination is adequate to evaluate the referral indication. There was atrial fibrillation with controlled ventricular rate during the examination. A small posterior loculated pericardial effusion is present. The pericardial effusion contains fibrous strands consistent with suspected significant chronicity of the effusion. Cardiac tamponade is absent. There is a small discrete area of akinesis at the very apex of the septum. The remaining left ventricular wall segments are mildly hypokinetic. The qualitative LV ejection fraction is 40-44% (mildly reduced). Mild mitral regurgitation is present. Compared to the images obtained on 06/25/2015, there has been no significant interval change. Nuclear Stress Testing reviewed, dated 07/02/15 at [facility]: Interpretation Summary Lexiscan nuclear cardiac stress test positive for myocardial scar in the apical wall. Lexiscan nuclear cardiac stress test negative for ischemia. Perfusion imaging reveals a small sized fixed perfusion defect of mild intensity encompassing the left ventricular apex. Gated SPECT imaging reveals mild apical hypokinesis. The left ventricular ejection fraction was calculated to be 51%. There are no prior studies of this modality available for comparison. ASSESSMENT and PLAN: 70 year old female 1. Atypical chest pain - -normal cardiac enzymes, non ischemic EKG -Non ischemic nuclear stress test in 06/2015 -consider repeat outpatient nuclear stress test 2. Small pericardial effusion, unchanged without tamponade -likely old/chronic. No further treatment necessary. 3. Hypertension - uncontrolled on admission -agree with increasing amlodipine dose 4. Near syncope with intermittent slow ventricular response -reduce carvedilol to 3.125 mg BID -reduce digoxin to 0.125 mcg every other day -may consider outpatient ekg monitor 5. Chronic persistent Atrial fibrillation - asymptomatic - continue Coumadin 6.Mildly reduced LV function echocardiogram, 06/25/2015 - stable per repeat echo this AM -negative nuclear stress 1 year ago -presumed underlying CAD, patient declined cath 1 year ago. Med management at that time 7.History of spontaneous pulmonary embolism, January, - chronic anticoagulation therapy PLAN: Med changes as above with reduction in digoxin and beta shamar. Increase amlodipine for BP. Monitor Monitor on telemetry today and tonight. Consider outpatient stress test, nuclear, if symptoms return/worsen. Case discussed with Dr. Gomez. Will follow. (Viri Moreno PA-C) Patient sen and examined. Atypical chest pain exacerbated with vigorous sneeze.. Plan and changes as above Ernie Gomez MD (Ernie Gomez M.D.)
[2016-06-20] MEDS: CARVEDILOL 3.125 MG TAB PO SCH (18:04)
[2016-06-20] MEDS ORDERED: TRAZODONE HCL 100 MG TAB PO SCH (21:00)
--- NOTE | 2016-06-20 22:21 | Progress Note ---
Internal Med Progress Note Date of Service: Jun 20, 2016. Provider Documentation: SUBJECTIVE: feels comfortable , mentions of feeling achiness on left side of chest when pulling herself up on the bed understands that it is probably due to muscle pull no SOB or chest heaviness no orthopnea OBJECTIVE: Vital Signs-as noted below Exam: General-very pleasant, no sign of distress Eyes-sclera non icteric ENT-NAD Neck-NO JVD Lungs-CTA ,no wheeze or rales Heart-regular S1/S2 Abdomen-soft, non tender Extremities-no lower ext edema Neuro-AAO x3, no calf tenderness Lab data as noted below. ASSESSMENT & PLAN: CHEST PAIN non cardiac /Atypical for anginal at present symptom free appreciate input form Cardiology Echo to shows new wall motion abnormalities. -normal cardiac enzymes, non ischemic EKG -Non ischemic nuclear stress test in 06/2015 -Outpatient nuclear stress test Continue aspirin, carvedilol, amlodipine, lisinopril. PERICARDIAL EFFUSION History of small pericardial effusion per echo 2016. ECHO : A small loculated lateral pericardial effusion of no hemodynamic significance is present. appreciate Cardiology consult no change in size of very small pericardial effusion unchanged without tamponade -likely old/chronic. No further treatment necessary. CHRONIC ATRIAL FIBRILLATION complain of chronic dizzy spell /syncope with intermittent Bradycardia Coreg and Digoxin dose adjusted by Cardiology -reduce carvedilol to 3.125 mg BID -reduce digoxin to 0.125 mcg every other day -out pt cardioNet will be arranged by Cardiology cont Coumadin HYPERTENSION / HYPERTENSIVE URGENCY BP improved Continue carvedilol, amlodipine, lisinopril. Increase amlodipine to 5 mg daily. GERD Continue PPI. VTE PROPHYLAXIS High risk- history of DVT and PE. Currently anticoagulated on warfarin with INR of 2.9. RESUSCITATION STATUS FULL CODE DISPOSITION Expected discharge to home tomorrow Family Medicine follow-up with Dr. Rodriguez. Cardiology follow-up with Dr. Calderon. . DVT PROPHYLAXIS [] DISPOSITION [] Vital Signs: Date Time Temp Pulse Resp B/P Pulse Ox O2 Delivery O2 Flow Rate FiO2 06/20/16 19:50 36.4 59 18 126/81 97 Room Air 06/20/16 17:53 68 144/82 06/20/16 16:00 96 Room Air 06/20/16 15:46 36.5 63 18 153/84 96 Room Air 06/20/16 12:12 36.2 77 16 157/79 95 Room Air 06/20/16 12:04 Room Air 06/20/16 09:00 52 06/20/16 08:00 Room Air 06/20/16 07:41 36.6 64 16 159/87 95 Room Air 06/20/16 04:48 36.5 60 20 134/70 95 Room Air 06/20/16 04:00 Room Air 06/20/16 00:00 Room Air 06/19/16 23:52 37.0 66 20 151/88 97 Room Air Lab Results: Results Past 24 Hours Test 06/20/16 00:02 06/20/16 05:58 Range/Units Troponin I 0.024 0.021 0-0.045 ng/ml White Blood Count 4.66 4.8-10.8 K/uL Red Blood Count 4.34 4.2-5.4 M/uL Hemoglobin 12.3 12.0-16.0 g/dL Hematocrit 37.1 37-47 % Mean Corpuscular Volume 85.5 80-100 fL Mean Corpuscular Hemoglobin 28.3 25-34 pg Mean Corpuscular Hemoglobin Concent 33.2 32-36 g/dl RDW Standard Deviation 41.7 36.4-46.3 fL RDW Coefficient of Variation 13.3 11.5-14.5 % Platelet Count 143 130-400 K/uL Mean Platelet Volume 10.5 7.4-10.4 fL Prothrombin Time 35.0 9.0-12.0 SECONDS Prothromb Time International Ratio 3.1 0.9-1.1 Sodium Level 142 136-145 mmol/L Potassium Level 3.4 3.5-5.1 mmol/L Chloride Level 105 98-107 mmol/L Carbon Dioxide Level 31 21-32 mmol/L Anion Gap 6.0 3-11 mmol/L Blood Urea Nitrogen 11 7-18 mg/dl Creatinine 0.86 0.60-1.20 mg/dl Est Creatinine Clear Calc Drug Dose 77.0 ml/min Estimated GFR () 79.3 Estimated GFR (Non- 68.4 BUN/Creatinine Ratio 12.6 10-20 Random Glucose 86 70-99 mg/dl Calcium Level 8.5 8.5-10.1 mg/dl Total Bilirubin 0.5 0.2-1 mg/dl Aspartate Amino Transf (AST/SGOT) 12 15-37 U/L Alanine Aminotransferase (ALT/SGPT) 14 12-78 U/L Alkaline Phosphatase 64 45-117 U/L Total Protein 6.1 6.4-8.2 gm/dl Albumin 3.1 3.4-5.0 gm/dl Globulin 3.0 2.5-4.0 gm/dl Albumin/Globulin Ratio 1.0 0.9-2 Triglycerides Level 81 0-150 mg/dl Cholesterol Level 143 0-200 mg/dl HDL Cholesterol 48 mg/dl LDL Cholesterol, Calculated 79 mg/dl VLDL Cholesterol, Calculated 16 mg/dl Cholesterol/HDL Ratio 3.0
[2016-06-21] VITALS (7 sets, daily range): BP systolic 126–172; BP diastolic 79–93; PULSE 58–83; TEMP 36.6–36.9; O2SAT 93–98
[2016-06-21 06:15] LABS: INR 2.9 (0.9-1.1)
[2016-06-21 06:33] LABS: BUN/CREATININE RATIO 12.5 (10-20); CALCIUM 8.5 mg/dl (8.5-10.1); CREATININE 0.95 mg/dl (0.60-1.20); POTASSIUM 3.5 mmol/L (3.5-5.1)
[2016-06-21] MEDS: PANTOprazole SOD 40 MG TAB PO SCH (09:04)
[2016-06-21] MEDS: AMLODIPINE BESYLATE 5 MG TAB PO SCH (09:04)
[2016-06-21] MEDS: CARVEDILOL 3.125 MG TAB PO SCH (09:04)
[2016-06-21] MEDS: LISINOPRIL 20 MG TAB PO SCH (09:19)
--- NOTE | 2016-06-21 13:52 | Cardiology Follow-Up ---
Subjective Subjective Date of Service: Jun 21, 2016. Pt evaluation today including: conversation w/ patient, conversation w/ family , physical exam, chart review, lab review, review of studies, review of inpatient medication list Additional Details: Pt seen and examined with at bedside. States that she feels well, chest pain reoccurs with movement, particularly adjusting herself in bed. Denies sob, palpitations, lightheadedness or dizziness. Tele reviewed: atrial fibrillation, rate controlled. Problem List Medical Problems: (1) Hypertensive urgency Status: Acute Review of Systems Cardiac: No PND, No chest pain, No claudication, No edema, No orthopnea, No palpitations, No problem reported, No see HPI Breast: No breast lump, No breast pain, No change in shape, No nipple discharge , No problem reported, No see HPI Objective Vital Signs Last Vital Signs Documentation Date Time Temp Pulse Resp B/P Pulse Ox O2 Delivery O2 Flow Rate FiO2 06/21/16 12:15 Room Air 06/21/16 11:48 36.9 62 18 126/83 97 Physical Exam: General Appearance: WD/WN, no apparent distress Eyes: bilateral eyes EOMI, bilateral eyes PERRL, bilateral eyes normal inspection ENT: normal ENT inspection, hearing grossly normal, pharynx normal Neck: supple, no adenopathy, thyroid normal, no JVD, no carotid bruits, trachea midline Respiratory/Chest: chest non-tender, lungs clear, normal breath sounds, no respiratory distress, no accessory muscle use Cardiovascular: no edema, no JVD, no murmur, + irregularly irregular Abdomen: normal bowel sounds, non tender, soft, no organomegaly, no pulsatile mass Extremities: normal inspection, no pedal edema, no calf tenderness Neurologic/Psychiatric: facilities manager II-XII nml as tested, no motor/sensory deficits, alert, normal mood/affect, oriented x 3 Skin: normal color, warm/dry, no rash Lymphatic: no adenopathy Assessment and Plan 1. chest pain musculoskeletal reproduced with movement 2. hypertension controlled d/c to home on current regimen 3. afib rate controlled cont coumadin ok to d/c to home from cardiac standpoint.
--- NOTE | 2016-06-21 14:38 | Discharge Instructions ---
Discharge Instructions Date of Service Jun 21, 2016. Admission Reason for Admission: Chest Pain Discharge Discharge Diagnosis / Problem: CHEST PAIN /MUSKULOSKELETAL NO EVIDENCE OF ACS/ CHRONIC AFIB Discharge Goals Goal(s): Decrease discomfort, Increase independence, Improve disease control Activity Recommendations Activity Limitations: resume your previous activity . Instructions / Follow-Up Instructions / Follow-Up HOSPITAL FOLLOW UP ON 06/27/2016 @ 12:50 PM Gopal Rodriguez MD Family Practice [facility] NEXT CARDIOLOGY FOLLOW UP ON 09/11/2016 @ 3:[address] Ken Calderon, DO Cardiology, [facility] YOUR MEDICATIONS HAS BEEN CHANGED: -reduce digoxin to 0.125 mcg every other day WILL NEED TO HAVE OUT PATIENT CARDIAC STRESS TEST AND OUT PATIENT CARDIO MONITORING -CARDIONET PLEASE FOLLOW UP WITH CARDIOLOGY TO SCHEDULE OUT PATIENT CARDIAC TESTINGS Current Hospital Diet Patient's current hospital diet: AHA Diet (Heart Healthy) Discharge Diet Recommended Diet: AHA Diet (Heart Healthy) Pending Studies Studies pending at discharge: no Laboratory Results Lipid Panel Test 06/20/16 05:58 Range/Units Triglycerides Level 81 0-150 mg/dl Cholesterol Level 143 0-200 mg/dl HDL Cholesterol 48 mg/dl Cholesterol/HDL Ratio 3.0 LDL Cholesterol, Calculated 79 mg/dl Medical Emergencies . Who to Call and When: Medical Emergencies: If at any time you feel your situation is an emergency, please call 911 immediately. . Non-Emergent Contact Non-Emergency issues call your: Primary Care Provider . . "Provider Documentation" section prepared by Sepideh Moura. VTE Core Measure Inpt VTE Proph given/why not?: Warfarin (Coumadin)
[2016-06-21] MEDS ORDERED: LNX125 PO (14:41)
[2016-06-21] MEDS ORDERED: CRG3125 PO (14:41)
[2016-06-21] MEDS ORDERED: CARV6.252 PO (15:27)
[2016-06-21] MEDS ORDERED: CARVEDILOL 3.125 MG TAB PO ONE (15:30)
--- NOTE | 2016-06-21 15:49 | History and Physical ---
History & Physical Date & Time of Service: Jun 21, 2016 at 15:48 Chief Complaint: Chest Pain Primary Care Physician: Gopal Rodriguez M.D.(AMANDA) History of Present Illness 70 YO female followed by Dr. Rodriguez for Family Medicine and Dr. Calderon for Cardiology. History of ischemic heart disease- apical wall motion abnormality per echo, but no clinical history of UT. History of pericardial effusion- incidentally noted on MRI, small by echo in 2016. Other medical problems include chronic AF managed with rate control and warfarin , hypertension, ocular melanoma. Developed chest pain this evening. She had been shopping with her and they were returning home in their vehicle when she developed left inframammary chest pressure. Chest pain was not pleuritic in nature and did not radiate. It was associated with SOB, but no diaphoresis, nausea, vomiting. Came to ED for evaluation. BP upon presentation 211/174. Received IV labetalol with improvement of BP and resolution of chest pain. Pain-free at time of my assessment. . 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, treated with radiation implant [facility] Status: Chronic (10) History of pulmonary embolism Status: Chronic (11) Hypertension Status: Chronic (12) Migraine headache Status: Chronic (13) Osteoarthritis Status: Chronic (14) Pericardial effusion Permanent Comment: small pericardial effusion per echo 2016 Status: Chronic (15) Restless leg syndrome Status: Chronic (16) Sleep apnea, obstructive Permanent Comment: intolerant of CPAP Status: Chronic (17) Statin intolerance Status: Chronic Surgical Problems: (1) Status post appendectomy Status: Chronic (2) Status post cholecystectomy Status: Chronic (3) Status post hysterectomy Status: Chronic Family History Cancer FATHER Coronary artery disease SON SON Hypertension SON Lung cancer BROTHER Stroke SON Uterine cancer MOTHER Social History Smoking Status: Never Smoker Alcohol Use: none Drug Use: none Marital Status: Housing status: lives with family Immunizations History of Influenza Vaccine: Yes History of Tetanus Vaccine?: No History of Pneumococcal: Yes Pneumococcal Date: Feb 08, 2012 History of Hepatitis B Vaccine: No Multi-Drug Resistant Organisms History of MDRO: No Allergies Coded Allergies: Aspirin (Verified Allergy, Unknown, ., 06/19/16) Penicillins (Verified Adverse Reaction, Mild, N/V, 06/19/16) Salicylates (Verified Adverse Reaction, Mild, NAUSEA, VOMITING, 06/19/16) Statins (Verified Adverse Reaction, Mild, MUSCLE PAIN, 06/19/16) Fluorescein (Verified Adverse Reaction, Unknown, DRUGS, 06/19/16) Home Medications Scheduled Amlodipine (Norvasc), 2.5 MG PO DAILY Carvedilol (Coreg), 1 TAB PO BID Digoxin (Digoxin), 0.125 MG PO MoWeFr Lisinopril (Zestril), 20 MG PO DAILY Omeprazole (Prilosec), 20 MG PO DAILY Trazodone Hcl (Desyrel), 100 MG PO HS Warfarin Sod (Jantoven), 2.5 MG PO 5XWK Warfarin Sod (Coumadin), 5 MG PO TW Scheduled PRN Albuterol Hfa (Ventolin Hfa), 2 PUFFS INH Q4H PRN for ALLERGIC REACTION Baclofen (Baclofen), 20 MG PO TID PRN for Muscle Spasms Meclizine HCl (Meclizine HCl), 25 MG PO TID PRN for Dizziness or Vertigo Physical Exam Vital Signs Date Time Temp Pulse Resp B/P Pulse Ox O2 Delivery O2 Flow Rate FiO2 06/21/16 14:49 36.9 62 18 97 Room Air 06/21/16 12:15 Room Air 06/21/16 11:48 36.9 62 18 126/83 97 06/21/16 08:15 Room Air 06/21/16 07:38 36.6 58 20 140/79 96 06/21/16 05:43 36.6 83 20 162/80 98 Room Air 06/21/16 04:00 93 Room Air 06/21/16 00:31 36.9 66 20 172/93 93 Room Air 06/21/16 00:00 93 Room Air 06/20/16 20:00 Room Air 06/20/16 19:50 36.4 59 18 126/81 97 Room Air 06/20/16 17:53 68 144/82 06/20/16 16:00 96 Room Air General Appearance: WD/WN, no apparent distress Head: normocephalic, atraumatic Eyes: normal inspection, PERRL, EOMI, sclerae normal ENT: normal ENT inspection, pharynx normal Neck: supple, no adenopathy, thyroid normal, trachea midline Respiratory/Chest: lungs clear, no respiratory distress, no accessory muscle use Cardiovascular: no JVD, no murmur, normal peripheral pulses, + irregularly irregular, + pertinent finding (trace pretibial edema) Abdomen/GI: normal bowel sounds, non tender, soft, no organomegaly, no pulsatile mass Extremities/Musculoskelatal: normal inspection, no calf tenderness, no pedal edema 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, EOMI), no motor/sensory deficits (motor 5/5 bilat), alert, oriented x 3 Skin: normal color, warm/dry, no rash Lymphatic: no adenopathy Diagnostics Laboratory Results Results Past 24 Hours Test 06/21/16 05:50 Range/Units Prothrombin Time 33.0 9.0-12.0 SECONDS Prothromb Time International Ratio 2.9 0.9-1.1 Sodium Level 142 136-145 mmol/L Potassium Level 3.5 3.5-5.1 mmol/L Chloride Level 104 98-107 mmol/L Carbon Dioxide Level 33 21-32 mmol/L Anion Gap 5.0 3-11 mmol/L Blood Urea Nitrogen 12 7-18 mg/dl Creatinine 0.95 0.60-1.20 mg/dl Est Creatinine Clear Calc Drug Dose 69.7 ml/min Estimated GFR () 70.3 Estimated GFR (Non- 60.7 BUN/Creatinine Ratio 12.5 10-20 Random Glucose 97 70-99 mg/dl Calcium Level 8.5 8.5-10.1 mg/dl Impression Advanced Directives Existing Living Will: No Existing Power of Security Operations Engineer: No VTE Prophylaxis VTE Risk Assessment Done? Y/N: Yes Risk Level: Moderate Given or contraindicated: Warfarin (Coumadin)
[2016-06-21] MEDS ORDERED: WARFARIN SOD 2.5 MG TAB PO SCH (16:00)
--- NOTE | 2016-06-21 16:24 | Discharge Summary ---
Discharge Summary Date of Service Jun 21, 2016. Discharge Summary Admission Date: Jun 19, 2016 at 20:00 Discharge Date: Jun 21, 2016 Principal Diagnosis: CHEST PAIN /MUSCULOSKELETAL NO EVIDENCE OF ACS/CHRONIC AFIB Procedures: ECHO 06/20/16: The left ventricle is normal in size. There is mild concentric left ventricular hypertrophy. There is borderline global hypokinesis of the left ventricle. There is borderline apical wall hypokinesis. Ejection Fraction = 50-55%. Aortic valve sclerosis mild, without significant aortic valvular stenosis. Consultations: [facility] Medication Reconciliation New Medications: Carvedilol (Coreg) 6.25 Mg Tab 1 TAB PO BID for 90 Days, #180 TAB 1 Refill Digoxin (Digoxin) 0.125 Mg Tab 0.125 MG PO MoWeFr for 30 Days, #30 TAB 3 Refills TAKE ONE TAB 3 TIMES A WEEK ON THURSDAY /THURSDAY /THURSDAY Continued Medications: Albuterol Hfa (Ventolin Hfa) 200 Puffs/01382 Mcg Aers 2 PUFFS INH Q4H PRN for ALLERGIC REACTION, #1 INHALER Amlodipine (Norvasc) 5 Mg Tab 2.5 MG PO DAILY, TAB Baclofen (Baclofen) 20 Mg Tab 20 MG PO TID PRN for Muscle Spasms Lisinopril (Zestril) 20 Mg Tab 20 MG PO DAILY, TAB Meclizine HCl (Meclizine HCl) 25 Mg Tab 25 MG PO TID PRN for Dizziness or Vertigo Omeprazole (Prilosec) 20 Mg Cap 20 MG PO DAILY, CAP TAKE THIS MEDICATION ONE HOUR PRIOR TO FIRST MEAL OF THE DAY. Trazodone Hcl (Desyrel) 100 Mg Tab 100 MG PO HS, TAB FOR RESTLESS LEGS Warfarin Sod (Jantoven) 5 Mg Tab 2.5 MG PO 5XWK, TAB THURSDAY, THURSDAY, THURSDAY, THURSDAY, & THURSDAY Warfarin Sod (Coumadin) 5 Mg Tab 5 MG PO TW THURSDAYS & SUNDAYS Discontinued Medications: Digoxin (Digoxin) 0.125 Mg Tab 0.125 MG PO DAILY Admission Information HPI (per Admitting provider): 70 YO female followed by Dr. Rodriguez for Family Medicine and Dr. Calderon for Cardiology. History of ischemic heart disease- apical wall motion abnormality per echo, but no clinical history of DC. History of pericardial effusion- incidentally noted on MRI, small by echo in 2016. Other medical problems include chronic AF managed with rate control and warfarin , hypertension, ocular melanoma. Developed chest pain this evening. She had been shopping with her and they were returning home in their vehicle when she developed left inframammary chest pressure. Chest pain was not pleuritic in nature and did not radiate. It was associated with SOB, but no diaphoresis, nausea, vomiting. Came to ED for evaluation. BP upon presentation 211/174. Received IV labetalol with improvement of BP and resolution of chest pain. Pain-free at time of my assessment. . Physical Exam (per Admitting): General Appearance: WD/WN, no apparent distress Head: normocephalic, atraumatic Eyes: normal inspection, PERRL, EOMI, sclerae normal ENT: normal ENT inspection, pharynx normal Neck: supple, no adenopathy, thyroid normal, trachea midline Respiratory/Chest: lungs clear, no respiratory distress, no accessory muscle use Cardiovascular: no JVD, no murmur, normal peripheral pulses, + irregularly irregular, + pertinent finding (trace pretibial edema) Abdomen/GI: normal bowel sounds, non tender, soft, no organomegaly, no pulsatile mass Extremities/Musculoskelatal: normal inspection, no calf tenderness, no pedal edema 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 PERICARDIAL EFFUSION History of small pericardial effusion per echo 2016. ECHO : A small loculated lateral pericardial effusion of no hemodynamic significance is present. appreciate Cardiology consult no change in size of very small pericardial effusion unchanged without tamponade -likely old/chronic. No further treatment necessary. CHRONIC ATRIAL FIBRILLATION complain of chronic dizzy spell /syncope with intermittent Bradycardia Coreg and Digoxin dose adjusted by Cardiology -reduce carvedilol to 3.125 mg BID -reduce digoxin to 0.125 mcg every other day -out pt cardioNet will be arranged by Cardiology cont Coumadin HYPERTENSION / HYPERTENSIVE URGENCY BP improved Continue carvedilol, amlodipine, lisinopril. Increase amlodipine to 5 mg daily. GERD Continue PPI. VTE PROPHYLAXIS High risk- history of DVT and PE. Currently anticoagulated on warfarin with INR of 2.9. RESUSCITATION STATUS FULL CODE DISPOSITION discharge to home today Family Medicine follow-up with Dr. Rodriguez. Cardiology follow-up with Dr. Calderon. . DVT PROPHYLAXIS [] DISPOSITION [] Total time spent on discharge = This includes examination of the patient, discharge planning, medication reconciliation, and communication with other providers. Discharge Instructions Discharge Instructions Date of Service Jun 21, 2016. Admission Reason for Admission: Chest Pain Discharge Discharge Diagnosis / Problem: CHEST PAIN /MUSCULOSKELETAL NO EVIDENCE OF ACS/ CHRONIC AFIB Discharge Goals Goal(s): Decrease discomfort, Increase independence, Improve disease control Activity Recommendations Activity Limitations: resume your previous activity . Instructions / Follow-Up Instructions / Follow-Up HOSPITAL FOLLOW UP ON 06/27/2016 @ 12:50 PM Gopal Rodriguez MD Family [facility] NEXT CARDIOLOGY FOLLOW UP ON 09/11/2016 @ 3:[address] Ken Calderon, DO Cardiology, [facility] YOUR MEDICATIONS HAS BEEN CHANGED: -reduce digoxin to 0.125 mcg every other day WILL NEED TO HAVE OUT PATIENT CARDIAC STRESS TEST AND OUT PATIENT CARDIO MONITORING -CARDIONET PLEASE FOLLOW UP WITH CARDIOLOGY TO SCHEDULE OUT PATIENT CARDIAC TESTINGS Current Hospital Diet Patient's current hospital diet: AHA Diet (Heart Healthy) Discharge Diet Recommended Diet: AHA Diet (Heart Healthy) Pending Studies Studies pending at discharge: no Laboratory Results Lipid Panel Test 06/20/16 05:58 Range/Units Triglycerides Level 81 0-150 mg/dl Cholesterol Level 143 0-200 mg/dl HDL Cholesterol 48 mg/dl Cholesterol/HDL Ratio 3.0 LDL Cholesterol, Calculated 79 mg/dl Medical Emergencies . Who to Call and When: Medical Emergencies: If at any time you feel your situation is an emergency, please call 911 immediately. . Non-Emergent Contact Non-Emergency issues call your: Primary Care Provider . . "Provider Documentation" section prepared by Sepideh Moura. VTE Core Measure Inpt VTE Proph given/why not?: Warfarin (Coumadin) Additional Copies To Gopal Rodriguez M.D.(AMANDA) Ken Calderon D.O.
[2016-06-22] MEDS ORDERED: WARFARIN SOD 5 MG TAB PO SCH (16:00)
[2016-06-23] MEDS ORDERED: DIGOXIN 0.125 MG TAB PO SCH (09:00)
== END 2016-06-21 15:55 | disposition home or self-care (01) | DRG 313 ==
LOC: ENRESERVDT → ENRESERVTM → C.EDB 17:52 → C.MED 20:00
PROVIDERS: ADMIT Hospitalist; ATTEND Hospitalist
DX: R07.89 Other chest pain (principal); I31.3 Pericardial effusion (noninflammatory); I48.1 Persistent atrial fibrillation; I16.0 Hypertensive urgency; I10 Essential (primary) hypertension; R00.1 Bradycardia, unspecified; R55 Syncope and collapse; R42 Dizziness and giddiness; I48.2 Chronic atrial fibrillation; I25.10 Atherosclerotic heart disease of native coronary artery without angina pectoris; J45.909 Unspecified asthma, uncomplicated; E78.5 Hyperlipidemia, unspecified; K21.9 Gastro-esophageal reflux disease without esophagitis; G47.33 Obstructive sleep apnea (adult) (pediatric); M15.9 Polyosteoarthritis, unspecified; I25.2 Old myocardial infarction; Z86.711 Personal history of pulmonary embolism; Z79.01 Long term (current) use of anticoagulants; Z79.899 Other long term (current) drug therapy

== ENCOUNTER → 2017-03-12 | Outpatient (CLI) | payer OTHER ==
[~2017-03-12] MED LIST changes: -ALBUAER19 INH; +AMLO5TAB3 PO; +ANT25 PO; +CARV6.252 PO; +GADOXETATE DISODIUM (NON-WT BASED PROCEDURE) IV PRN; -MECL25TA2 PO; +TRAZ-162 PO; -TRAZ1TAB9 PO; +VNTHFA/IN INH
--- NOTE | 2017-03-12 14:31 | DIAGNOSTIC IMAGING REPORT ---
LIVER COMBO CLINICAL HISTORY: 71 years-old Female presenting with LIVER MELANOMA OF EYE W/METS. TECHNIQUE: Multisequence, multiplanar MR imaging of the abdomen was performed before and after the administration of intravenous contrast. IV contrast: 10 mL of Eovist. COMPARISON: 06/09/2016. FINDINGS: Localizer images: Unremarkable. Lung bases: Lungs and pleural spaces clear. Normal heart size. No pericardial or pleural effusion. Liver: Normal morphology. In the previously noted region of multifocal decreased signal intensity in segment 7 on hepatobiliary specific phase, again no focal T2 hyperintensity or restricted diffusion to suggest a focal lesion. This could relate to slightly greater fat deposition in these regions (hepatic fat fraction 2.4% focally). No suspicious lesion. Few tiny hepatic cysts or hamartomas noted. Hepatic fat fraction measures 1.8%, which is normal. Conventional hepatic arterial anatomy. Superior mesenteric, portal, and hepatic veins patent.. Biliary: Right anterior intrahepatic duct inserts onto the left hepatic duct prior to the confluence with the right posterior duct. Normal excretion of contrast through the biliary ducts into the duodenum. No intrahepatic or extra hepatic biliary ductal dilatation. Gallbladder surgically absent. Pancreas: Mild parenchymal atrophy. Spleen: Normal. Splenule noted. Adrenal glands: Normal. Kidneys and ureters: Normal. No hydronephrosis. Bowel: Normal. No bowel obstruction. Peritoneal cavity: No free fluid or intraperitoneal gas. Lymph nodes: No enlarged lymph nodes in the abdomen. Vasculature: Aorta and IVC patent and normal in caliber. Abdominal wall: Normal. Musculoskeletal: Normal. IMPRESSION: 1. No acute intra-abdominal metastatic disease. Electronically signed by: Rick Sandy M.D. 03/12/2017 2:29 PM Dictated Date/Time: 03/12/2017 2:16 PM
== END | disposition home or self-care (01) ==
LOC: C.MRI 12:34
PROVIDERS: ATTEND Internal Medicine Hematology & Oncology
DX: C69.92 Malignant neoplasm of unspecified site of left eye (principal)